=== PATIENT | female | born 1970 | race Caucasian/White ===

== ENCOUNTER → 2017-03-06 | Outpatient (CLI) | payer BC ==
--- NOTE | 2017-03-06 11:18 | RAD ---
DATE: 03/06/2017 EXAM: DIGITAL SCREEN BILAT W/CAD HISTORY: Routine screening COMPARISON: 04/22/2013 This study was interpreted with the benefit of Computerized Aided Detection (CAD). The breast parenchyma is heterogeneously dense, which could reduce sensitivity of mammography. Breast parenchyma level C. FINDINGS: An asymmetric opacity seen posteromedially in the left breast on the previous study is unchanged. This would favor a benign etiology. There is an 8 mm smooth nodule in the inferolateral aspect of the left breast posteriorly. This has increased slightly in size since 2012. Its margins are smooth. It is superficial in location. The skin should be carefully examined at this level to make sure that this is not simply a skin lesion No other new or enlarging breast densities are seen. No suspicious microcalcifications are evident. IMPRESSION: 1. A small smooth nodule in the inferior lateral aspect left breast has increased slightly in size since 2012. Sonographic evaluation is suggested. 2. Otherwise stable mammograms BI-RADS CATEGORY: 0 INCOMPLETE: NEEDS ADDITIONAL IMAGING EVALUATION AND/OR PRIOR MAMMOGRAMS FOR COMPARISON. RECOMMENDED FOLLOW-UP: ADD ADDITIONAL IMAGING PQRS compliance statement: Patient information was entered into a reminder system with a target due date for the next mammogram. Mammography is a sensitive method for finding small breast cancers, but it does not detect them all and is not a substitute for careful clinical examination. A negative mammogram does not negate a clinically suspicious finding and should not result in delay in biopsying a clinically suspicious abnormality. "Our facility is accredited by the [employer] Mammography Program."
== END | disposition home or self-care (01) ==
LOC: MAMMO 09:48
PROVIDERS: ATTEND Physician Assistant
DX: Z12.31 Encounter for screening mammogram for malignant neoplasm of breast (principal)
CPT/HCPCS: G0202; 77067

== ENCOUNTER → 2017-05-01 | Outpatient (CLI) | payer OTHER ==
--- NOTE | 2017-05-01 09:13 | RAD ---
Left breast ultrasound, 05/01/2017: History: Evaluate breast nodule A small nodule was noted in the left breast inferolaterally on the mammograms of 02/26/2017. A targeted ultrasound exam of that region was performed. There is a smooth 7 x 7 x 5 mm superficial hypoechoic nodule at the 4:00 location located approximately 11 cm from the nipple. It cannot be from the skin. There is a posterior acoustic enhancement. The appearance is that of a complicated cyst, probably a sebaceous cyst. The patient reports that this lesion has been present for many years. This probably corresponds to the mammographic abnormality. At the 3:30 location, approximately 4 cm from the nipple a small 4 x 5 x 3 mm hypoechoic nodule was also noted. Its margins are smooth. There are mildly heterogeneous internal echoes. This nodule has a fairly benign appearance and is most likely a fibroadenoma. No other abnormality was identified. IMPRESSION: 1. The mammographic nodule corresponds to a small cystic structure, likely a sebaceous cyst. 2. Additional small benign-appearing hypoechoic nodule as described above. 3. Follow-up left breast ultrasound in 6 months and bilateral mammography at one year is suggested. BI-RADS 3-probably benign findings
== END | disposition home or self-care (01) ==
LOC: US 07:50
PROVIDERS: ATTEND Physician Assistant
DX: N63 Unspecified lump in breast (principal)
CPT/HCPCS: 76641

== ENCOUNTER → 2020-11-09 | Outpatient (CLI) | payer BC, OTHER ==
--- NOTE | 2020-11-09 13:50 | RAD ---
PROCEDURE: MG BILAT SCREEN+NARA HISTORY: The patient is 50 years old and is seen for Reason: ANNUAL SCREENING / Spl. Instructions: / History: . COMPARISON: March 06, 2017 TECHNIQUE: CC and MLO views of both breasts were obtained. Images were processed by the [employer] computer-aided detection system. DENSITY: The breast parenchyma is heterogeneously dense. This may lower the sensitivity of mammograph y. FINDINGS: Increased cutaneous mass overlying the right posterior mid breast. No developing mass, barros spicious calcifications or architectural distortion. IMPRESSION: Negative. No evidence of malignancy. Recommend annual screening mammograms per [employer] guidelines. She will be due in one year. BI-RADS category 1 Negative Patient entered into a reminder system for annual screening mammogram. Electronically signed by: Troy Man DO (11/09/2020 1:48 PM) [id number]
== END ==
LOC: MAMMO 10:24
PROVIDERS: ATTEND Nurse Practitioner Adult Health
DX: Z12.31 Encounter for screening mammogram for malignant neoplasm of breast (principal)
CPT/HCPCS: 77063; 77067